=== PATIENT | female | born 1985 | race Caucasian/White ===

== ENCOUNTER 2020-01-11 08:51 | Observation (INO) | payer OTHER ==
[~2020-01-11] VITALS: Ht 152.4 cm; Wt 90.7 kg
[2020-01-11] MEDS ORDERED: PREN-176 PO (22:44)
[2020-01-12] MEDS ORDERED: PREN-182 PO (20:20)
== END 2020-01-11 23:10 | disposition home or self-care (01) ==
LOC: 8 EST LDRP 08:51 → UNDOADMOB 20:28 → 8 EST LDRP 20:28
PROVIDERS: ADMIT Obstetrics & Gynecology; ATTEND Obstetrics & Gynecology
DX: O36.0130 Maternal care for anti-D [Rh] antibodies, third trimester, not applicable or unspecified (principal); Z3A.23 23 weeks gestation of pregnancy
CPT/HCPCS: 59025; G0378; 99281

== ENCOUNTER 2020-01-12 19:44 | Observation (INO) | payer OTHER ==
[~2020-01-12] VITALS: Ht 152.4 cm; Wt 90.3 kg
[~2020-01-12 19:44] MED LIST: PREN-176 PO
[2020-01-12] MEDS ORDERED: PREN-182 PO (20:20)
[2020-01-12] MEDS ORDERED: RHO(D) IMMUNE GLOBULIN 300 MCG/SYR IM NR (23:00)
== END 2020-01-13 00:15 | disposition home or self-care (01) ==
LOC: 8 EST LDRP 19:44
PROVIDERS: ADMIT Obstetrics & Gynecology; ATTEND Obstetrics & Gynecology
DX: O26.852 Spotting complicating pregnancy, second trimester (principal); Z3A.23 23 weeks gestation of pregnancy
CPT/HCPCS: 36415; 59025; 86886; 90384; 96372; G0378; 99281